=== PATIENT | female | born 1975 | race Caucasian/White ===

== ENCOUNTER 2020-08-21 14:02 | Emergency (ER) | payer OTHER ==
[~2020-08-21] VITALS: Ht 160 cm; Wt 43.1 kg
[2020-08-21] MEDS ORDERED: ONDA4TAB5 PO ×3 (14:34→14:52)
[2020-08-21] MEDS ORDERED: ACETAMINOPHEN 325 MG TABLET PO ONE (14:45)
[2020-08-21] MEDS ORDERED: METOCLOPRAMIDE HCL 10 MG/2 ML VIAL IV ONE (14:45)
[2020-08-21] MEDS ORDERED: DEXAMETHASONE SOD PHOSPHATE 4 MG INJ IV ONE (14:45)
[2020-08-21] MEDS ORDERED: IV NORMAL SALINE 1000 ML BAG IV ONE (14:45)
[2020-08-21] MEDS ORDERED: DESV50TA PO (14:52)
[2020-08-21] MEDS ORDERED: ATOM80CA PO (14:52)
[2020-08-21] MEDS ORDERED: TRAZ-257 PO (14:52)
[2020-08-21] MEDS ORDERED: DOCU-141 PO (14:52)
[2020-08-21] MEDS ORDERED: METH-406 PO ×2 (14:52)
[2020-08-21] MEDS ORDERED: SUMA100T PO (14:52)
[2020-08-21] MEDS ORDERED: TOPI100T38 PO (14:52)
[2020-08-21] MEDS ORDERED: IBUP-1957 PO (14:52)
[2020-08-21] MEDS ORDERED: CYCL5TAB PO ×3 (14:52)
[2020-08-21] MEDS ORDERED: HYDR50TA62 PO ×3 (14:52)
[2020-08-21] MEDS ORDERED: LAMO100T17 PO (14:52)
[2020-08-21] MEDS ORDERED: PROP20TA7 PO ×3 (14:52)
[2020-08-21] MEDS ORDERED: ACETAMINOPHEN 325 MG TABLET ONE (15:07)
[2020-08-21] MEDS ORDERED: METOCLOPRAMIDE HCL 10 MG/2 ML VIAL ONE (15:07)
[2020-08-21] MEDS ORDERED: DEXAMETHASONE SOD PHOSPHATE 10 MG INJ ONE (15:07)
[2020-08-21 15:19] LABS: BASOPHILS % (AUTO) 0.5 % (0.0-2.0); EOSINOPHILS # (AUTO) 0.2 K/uL (0.0-0.7); EOSINOPHILS % (AUTO) 2.5 % (0.0-7.0); HEMATOCRIT 33.7 % (31.2-41.9); HEMOGLOBIN 11.2 g/dL (10.9-14.3); LYMPHOCYTES # (AUTO) 1.3 K/uL (20.0-40.0); MEAN CORPUSCULAR HEMOGLOBIN 29.5 uug (24.7-32.8); MEAN CORPUSCULAR HGB CONC 33 g/dL (32.3-35.6); MEAN CORPUSCULAR VOLUME 88.9 fL (75.5-95.3); MONOCYTES # (AUTO) 0.5 K/uL (2.0-10.0); MONOCYTES % (AUTO) 6.9 % (0.0-11.0); NEUTROPHILS # (AUTO) 4.7 K/uL (1.8-8.9); NEUTROPHILS % (AUTO) 70.1 % (38.5-71.5); PLATELET COUNT (AUTO) 271 K/uL (179-408); WHITE BLOOD COUNT (AUTO) 6.7 K/uL (3.8-11.8)
[2020-08-21 15:25] LABS: BILIRUBIN,DIRECT 0.1 mg/dL (0.0-0.2); BILIRUBIN,TOTAL 0.2 mg/dL (0.2-1.0); POTASSIUM 3.5 mmol/L (3.5-5.1); TOTAL PROTEIN, SERUM 6.7 g/dL (6.4-8.2)
[2020-08-21] MEDS ORDERED: LIDOCAINE 5% PATCH TD ONE ×2 (16:00→16:05)
[2020-08-21] MEDS ORDERED: KETOROLAC TROMETHAMINE 15 MG INJ IM ONE (16:00)
[2020-08-21] MEDS ORDERED: KETOROLAC TROMETHAMINE 15 MG INJ ONE (16:05)
[2020-08-21 16:33] VITALS: BP 111/65
== END 2020-08-21 16:46 | disposition left against medical advice (07) ==
LOC: ER 14:05
DX: G43.909 Migraine, unspecified, not intractable, without status migrainosus (principal); R55 Syncope and collapse; R06.00 Dyspnea, unspecified; Z85.41 Personal history of malignant neoplasm of cervix uteri; Z91.040 Latex allergy status; R94.31 Abnormal electrocardiogram [ECG] [EKG]; E87.1 Hypo-osmolality and hyponatremia; E87.8 Other disorders of electrolyte and fluid balance, not elsewhere classified; R26.81 Unsteadiness on feet
CPT/HCPCS: 36415; 70450; 71045; 80048; 80076; 83690; 83735; 84484; 85025; 85379; 93005; 96361; 96372; 96374; 96375; 99285; J1100; J1885; J2765; 70030-TC; A4663; J7030